=== PATIENT | female | born 1965 | race African-American/Black ===

== ENCOUNTER 2019-11-14 11:25 | Emergency (ER) | payer BC ==
[~2019-11-14] VITALS: Ht 162.6 cm; Wt 86.0 kg
[2019-11-14] MEDS ORDERED: SODIUM CHLORIDE 0.9% 1,000 ML IV ONE (11:52)
[2019-11-14] MEDS ORDERED: ETOMIDATE 2MG/ML 10ML VIAL IV ONE (12:00)
[2019-11-14] MEDS ORDERED: ONDANSETRON HCL 4MG/2ML INJ IV ONE (12:00)
[2019-11-14] MEDS ORDERED: KETOROLAC 15MG/ML VIAL IV ONE (12:00)
[2019-11-14] MEDS ORDERED: BACITRACIN ZINC OINT UDPKT TOP ONE (13:45)
[2019-11-14 15:24] VITALS: BP 124/75
== END 2019-11-14 15:20 | disposition home or self-care (01) ==
LOC: ER 11:40
DX: S82.832A Other fracture of upper and lower end of left fibula, initial encounter for closed fracture (principal); W10.8XXA Fall (on) (from) other stairs and steps, initial encounter; Y93.89 Activity, other specified; Y92.018 Other place in single-family (private) house as the place of occurrence of the external cause
CPT/HCPCS: 27840; 73600; 73610; 96374; 96375; 99152; 99285; J1885; J2405; J3490; J7030